=== PATIENT | female | born 1935 | race Caucasian/White ===

== ENCOUNTER 2017-10-30 10:51 | Inpatient (IN) | payer MEDICARE ==
[~2017-10-30] VITALS: Ht 139.7 cm; Wt 77.1 kg
[~2017-10-30 10:51] MED LIST: AMLODIPINE BES2.5 MG ORAL; HYDROCHLOROTH12.5 M2 ORAL; OMEPRAZOLE10 M1 ORAL
[2017-10-30] MEDS ORDERED: Morphine Sulfate 2mg/ml Inj IVP ONE ×2 (11:15→12:15)
[2017-10-30 11:31] LABS: BASOPHILS % (AUTO) 0.6 % (0.0-2.0); EOSINOPHILS % (AUTO) 0.2 % (0.0-3.0); HEMATOCRIT 42.9 % (37.0-47.0); LYMPHOCYTES % (AUTO) 10.8 % (20.0-45.0); MEAN CORPUSCULAR VOLUME 88 FL (80-99); NEUTROPHILS % (AUTO) 78.4 % (45.0-75.0); PLATELET COUNT 247 K/UL (150-450); RED BLOOD COUNT 4.86 M/UL (4.20-5.40); RED CELL DISTRIBUTION WIDTH 12.8 % (11.6-14.8); WHITE BLOOD COUNT 9.3 K/UL (4.8-10.8)
[2017-10-30 11:39] LABS: ALANINE AMINOTRANSFERASE 24 U/L (12-78); ALBUMIN 3.5 G/DL (3.4-5.0); ALBUMIN/GLOBULIN RATIO 0.9 (1.0-2.7); ALKALINE PHOSPHATASE 110 U/L (46-116); ANION GAP 9 mmol/L (5-15); ASPARTATE AMINO TRANSFERASE 22 U/L (15-37); BILIRUBIN,TOTAL 0.5 MG/DL (0.2-1.0); BLOOD UREA NITROGEN 21 mg/dL (7-18); CALCIUM 8.7 MG/DL (8.5-10.1); CARBON DIOXIDE 28 MMOL/L (21-32); CHLORIDE 100 MMOL/L (98-107); CREATININE 0.9 MG/DL (0.55-1.30); POTASSIUM 3.4 MMOL/L (3.5-5.1); SODIUM 136 MMOL/L (136-145)
--- NOTE | 2017-10-30 12:05 | Diagnostic Imaging Report ---
Indication: Right hip pain, trauma, fall Technique: No contrast utilized, per trauma protocol Spiral acquisitions obtained through the right hip. Multiplanar reconstructions were generated. Total dose length product 551.66 mGycm. CTDIvol(s) 18.93 mGy. Radiation dose was minimized using automated exposure control Comparison: none Findings: No evidence of right hip fracture demonstrated. No evidence of pelvic or sacral fracture. No significant joint space narrowing. There are minimal proliferative and subchondral cystic changes of the posterior left acetabulum, consistent with mild degenerative change. Heterotopic ossification of the superficial muscular fascia of the left hip is noted. There are degenerative changes of the lumbosacral junction. The included pelvic viscera are unremarkable. Impression: No evidence of acute bony trauma. Degenerative changes, as described Incidental findings as noted The CT scanner at [facility] is accredited by the [employer] and the scans are performed using protocols designed to limit radiation exposure to as low as reasonably achievable to attain images of sufficient resolution adequate for diagnostic evaluation.
[2017-10-30] MEDS ORDERED: LORazepam Inj 2mg/ml 1ml IV PRN (13:45)
[2017-10-30] MEDS ORDERED: Mylanta II UD 30ml ORAL PRN (13:45)
[2017-10-30 13:46] VITALS: BP 108/69
[2017-10-30] MEDS: Morphine Sulfate 4mg/ml Inj IVP PRN ×2 (13:52→17:25)
--- NOTE | 2017-10-30 14:55 | Diagnostic Imaging Report ---
Indication: Knee pain Technique: 3 views of the right knee Comparison: None Findings:Cylindrical metallic foreign body projects immediately lateral to the distal femoral metadiaphysis in the adjacent soft tissues. This measures approximate 20 mm in length by 3 mm in diameter No acute fractures. No dislocations. No suprapatellar effusion. There is severe medial compartmental degenerative joint space narrowing. There is extensive degenerative remodeling of the femur and the tibia, particularly medially. Bones are osteoporotic. Impression: No definite acute bony trauma Degenerative changes, as described Soft tissue foreign body, as described
--- NOTE | 2017-10-30 15:26 | Diagnostic Imaging Report ---
Indication: Pain, fall last night at home, 10 out of 10 right knee pain Technique: No IV contrast, per trauma protocol. Spiral acquisitions obtained through the right knee Multiplanar reconstructions were generated. Total dose length product 351.57 mGycm. CTDIvol(s) 15.26 mGy. Radiation dose was minimized using automated exposure control Comparison: Plain radiograph of earlier the same day Findings: There is what appears to be a subtle vertically oriented nondisplaced fracture line through the far lateral aspect of the patella, appreciable on both the coronal and the axial images. This is not evident on the plain radiographs. There is some overlying soft tissue thickening/contusion. There is also a small joint effusion which is not clearly evident on the plain radiograph. Slightly high attenuation of the fluid suggests that it may be bloody. No other evidence of acute fracture. No dislocations. A cylindrical metallic radiopaque foreign body is seen in the lateral aspect of the suprapatellar bursa, also demonstrated on the recent radiograph. There is moderate to severe degenerative narrowing of the medial joint compartment, less severe narrowing of the lateral joint compartment. There is underlying subchondral sclerosis and small subchondral cyst formation on both sides of the joint, as well as sizable osteophytes. There is also some degenerative change of the patellofemoral joint. Fairly extensive cloudlike calcifications are seen within the knee joint. There is also subtle meniscal chondrocalcinosis, particularly of the medial meniscus. Impression: Suspicious for subtle nondisplaced fracture of the far lateral aspect of the patella. There is evidence of overlying soft tissue ecchymosis Small joint effusion, which is possibly bloody Cylindrical radiopaque metallic foreign body within the suprapatellar bursa, nature/etiology of which is uncertain. Cloudlike calcifications throughout the joint space. These may represent a variation of early synovial osteochondromatosis, or could represent dystrophic calcifications Fairly extensive degenerative changes, as described Findings discussed by phone with Dr. Hernandez in the emergency room at the time of interpretation The CT scanner at [facility] is accredited by the [employer] and the scans are performed using protocols designed to limit radiation exposure to as low as reasonably achievable to attain images of sufficient resolution adequate for diagnostic evaluation.
--- NOTE | 2017-10-30 16:14 | Emergency Room Report ---
History of Present Illness General Chief Complaint: Lower Extremity Injury Source: Patient, EMS Present Illness HPI Patient is 82-year-old female who presented after increased right hip and knee pain. Patient said and onset of symptoms after a fall. Patient was brought in by EMS. Patient was noted to be unable to handle it after falling. Ports having prior orthopedic surgery on her left knee with a knee replacement. Patient has prior history of anticoagulant use. Allergies: Coded Allergies: PENICILLIN (Verified Allergy, Unknown, 08/05/15) Patient History Past Medical History: see triage record Reviewed Nursing Documentation: PMH: Agreed, PSxH: Agreed Nursing Documentation-PMH Past Medical History: No History, Except For Hx Cardiac Problems: Yes - AFIB Hx Hypertension: Yes Hx Pacemaker: No Hx Asthma: No Hx COPD: No Hx Diabetes: No Hx Cancer: No Hx Gastrointestinal Problems: No Hx Dialysis: No Hx Neurological Problems: No Hx Cerebrovascular Accident: No Hx Seizures: No Review of Systems All Other Systems: negative except mentioned in HPI Physical Exam Vital Signs Date Time Temp Pulse Resp B/P (MAP) Pulse Ox O2 Delivery O2 Flow Rate FiO2 10/30/17 10:44 97.4 67 20 146/69 100 Room Air 97.3 Sp02 EP Interpretation: reviewed, normal General Appearance: normal inspection, no apparent distress, alert, GCS 15, Chronically Ill Head: atraumatic ENT: normal ENT inspection, hearing grossly normal, normal voice Neck: normal inspection, full range of motion, supple, no bony tend Respiratory: normal inspection, lungs clear, normal breath sounds, no respiratory distress, no retraction, no wheezing Cardiovascular #1: regular rate, rhythm, no gallop Gastrointestinal: normal inspection, normal bowel sounds, non tender, soft, no guarding, no hernia Genitourinary: no CVA tenderness Musculoskeletal: normal inspection, back normal, normal range of motion Neurologic: normal inspection, alert, responsive, speech normal Psychiatric: normal inspection, judgement/insight normal, mood/affect normal Skin: no rash, other - soft tissue swelling right knee Medical Decision Making Diagnostic Impression: Primary Impression: Fall Additional Impressions: Hemarthrosis Patellar fracture Contusion, hip Foreign body (FB) in soft tissue ER Course Patient presented for right hip pain and right knee pain. Differential diagnosis included was not limited to fracture, dislocation, sprain, patellar fracture among others. Because of complexity of patient's case laboratory testing and imaging studies were ordered. The telemetry studies are unremarkable. Patient was noted to have CT of the right hip read by radiology which showed no definite fracture. Plain film x- ray of the right knee showed degenerative changes without definite fracture CT of the right knee was ordered due to persistent pain. Dr. sharma was contacted for inpatient management due to panel physician. The patient was noted to have severe pain with movement of the knee. Patient given IV pain medications.Dr. Ar Mahoney was contacted for Orthopedic consult. Labs Test 10/30/17 11:10 White Blood Count 9.3 K/UL (4.8-10.8) Red Blood Count 4.86 M/UL (4.20-5.40) Hemoglobin 14.0 G/DL (12.0-16.0) Hematocrit 42.9 % (37.0-47.0) Mean Corpuscular Volume 88 FL (80-99) Mean Corpuscular Hemoglobin 28.8 PG (27.0-31.0) Mean Corpuscular Hemoglobin Concent 32.6 G/DL (32.0-36.0) Red Cell Distribution Width 12.8 % (11.6-14.8) Platelet Count 247 K/UL (150-450) Mean Platelet Volume 7.2 FL (6.5-10.1) Neutrophils (%) (Auto) 78.4 % (45.0-75.0) Lymphocytes (%) (Auto) 10.8 % (20.0-45.0) Monocytes (%) (Auto) 10.0 % (1.0-10.0) Eosinophils (%) (Auto) 0.2 % (0.0-3.0) Basophils (%) (Auto) 0.6 % (0.0-2.0) Prothrombin Time 10.2 SEC (9.30-11.50) Prothromb Time International Ratio 1.0 (0.9-1.1) Activated Partial Thromboplast Time 30 SEC (23-33) Sodium Level 136 MMOL/L (136-145) Potassium Level 3.4 MMOL/L (3.5-5.1) Chloride Level 100 MMOL/L (98-107) Carbon Dioxide Level 28 MMOL/L (21-32) Anion Gap 9 mmol/L (5-15) Blood Urea Nitrogen 21 mg/dL (7-18) Creatinine 0.9 MG/DL (0.55-1.30) Estimat Glomerular Filtration Rate mL/min (>60) Glucose Level 105 MG/DL (74-106) Calcium Level 8.7 MG/DL (8.5-10.1) Total Bilirubin 0.5 MG/DL (0.2-1.0) Aspartate Amino Transf (AST/SGOT) 22 U/L (15-37) Alanine Aminotransferase (ALT/SGPT) 24 U/L (12-78) Alkaline Phosphatase 110 U/L (46-116) Total Protein 7.3 G/DL (6.4-8.2) Albumin 3.5 G/DL (3.4-5.0) Globulin 3.8 g/dL Albumin/Globulin Ratio 0.9 (1.0-2.7) Last Vital Signs Date Time Temp Pulse Resp B/P (MAP) Pulse Ox O2 Delivery O2 Flow Rate FiO2 10/30/17 13:52 97.5 10/30/17 13:46 20 108/69 95 Room Air 10/30/17 10:44 67 Status: unchanged Disposition: ADMITTED INPATIENT Condition: Serious Referrals: NOT CHOSEN IPA/,REFERRING (PCP) Kalyan Sears Oct 30, 2017 16:14
[2017-10-30] MEDS ORDERED: ELIQUIS2.5 MG PO (17:38)
--- NOTE | 2017-10-30 18:50 | Cardiology Progress Note ---
Assessment/Plan Assessment/Plan [id number] as paf htn patelar fx awiat echo to see how sever eric as is hodl eliquis repeat lab avodi non urgen or emergent surgicl procedure unitl echo avaialbel Objective Last 24 Hour Vital Signs Date Time Temp Pulse Resp B/P (MAP) Pulse Ox O2 Delivery O2 Flow Rate FiO2 10/30/17 17:25 97.5 10/30/17 16:28 97.5 10/30/17 16:27 97.5 10/30/17 13:52 97.5 10/30/17 13:46 97.5 20 108/69 95 Room Air 97.5 10/30/17 12:14 97.4 10/30/17 11:36 97.4 10/30/17 11:06 97.4 10/30/17 10:44 97.4 67 20 146/69 100 Room Air 97.3 Laboratory Tests Test 10/30/17 11:10 White Blood Count 9.3 K/UL (4.8-10.8) Red Blood Count 4.86 M/UL (4.20-5.40) Hemoglobin 14.0 G/DL (12.0-16.0) Hematocrit 42.9 % (37.0-47.0) Mean Corpuscular Volume 88 FL (80-99) Mean Corpuscular Hemoglobin 28.8 PG (27.0-31.0) Mean Corpuscular Hemoglobin Concent 32.6 G/DL (32.0-36.0) Red Cell Distribution Width 12.8 % (11.6-14.8) Platelet Count 247 K/UL (150-450) Mean Platelet Volume 7.2 FL (6.5-10.1) Neutrophils (%) (Auto) 78.4 % (45.0-75.0) H Lymphocytes (%) (Auto) 10.8 % (20.0-45.0) L Monocytes (%) (Auto) 10.0 % (1.0-10.0) Eosinophils (%) (Auto) 0.2 % (0.0-3.0) Basophils (%) (Auto) 0.6 % (0.0-2.0) Prothrombin Time 10.2 SEC (9.30-11.50) Prothromb Time International Ratio 1.0 (0.9-1.1) Activated Partial Thromboplast Time 30 SEC (23-33) Sodium Level 136 MMOL/L (136-145) Potassium Level 3.4 MMOL/L (3.5-5.1) L Chloride Level 100 MMOL/L (98-107) Carbon Dioxide Level 28 MMOL/L (21-32) Anion Gap 9 mmol/L (5-15) Blood Urea Nitrogen 21 mg/dL (7-18) H Creatinine 0.9 MG/DL (0.55-1.30) Estimat Glomerular Filtration Rate mL/min (>60) Glucose Level 105 MG/DL (74-106) Calcium Level 8.7 MG/DL (8.5-10.1) Total Bilirubin 0.5 MG/DL (0.2-1.0) Aspartate Amino Transf (AST/SGOT) 22 U/L (15-37) Alanine Aminotransferase (ALT/SGPT) 24 U/L (12-78) Alkaline Phosphatase 110 U/L (46-116) Total Protein 7.3 G/DL (6.4-8.2) Albumin 3.5 G/DL (3.4-5.0) Globulin 3.8 g/dL Albumin/Globulin Ratio 0.9 (1.0-2.7) SINA HARRELL Oct 30, 2017 18:50
[2017-10-30 20:00] VITALS: BP 114/74
[2017-10-30] MEDS ORDERED: Heparin 5000 units/ml inj SUBQ SCH (21:00)
[2017-10-30] MEDS ORDERED: Zolpidem 5mg tab ORAL PRN (21:00)
[2017-10-30] MEDS ORDERED: Miralax 17gm pkt ORAL PRN (21:00)
[2017-10-30] MEDS: Eliquis 2.5mg tablet ORAL SCH (22:15)
--- NOTE | 2017-10-30 22:44 | History and Physical ---
History of Present Illness General Date patient seen: Oct 30, 2017 Reason for Hospitalization: Lower Extremity Injury Present Illness HPI 82-year-old female with hx of Afib on Eliquis presented to Er by paramedics after increased right hip and knee pain after a fall. Pt was found to have acute patella fracture. Because of her cardiac history, she was admitted to telemetry. she is asymptomatic at this point. Allergies: Coded Allergies: PENICILLIN (Verified Allergy, Unknown, 08/05/15) Medication History Scheduled Amlodipine Besylate* (Amlodipine Besylate*), Unknown Dose ORAL DAILY, (Reported) Apixaban (Eliquis), 2.5 MG PO BID, (Reported) Hydrochlorothiazide* (Hydrochlorothiazide*), Unknown Dose ORAL DAILY, (Reported) Omeprazole (Omeprazole), Unknown Dose ORAL DAILY, (Reported) Patient History Healthcare decision maker Resuscitation status Advanced Directive on File Past Medical/Surgical History Past Medical/Surgical History: (1) CAD (coronary artery disease) (2) Hip fracture (3) Chronic anticoagulation Review of Systems Musculoskeletal: Reports: joint pain All Other Systems: negative except mentioned in HPI Physical Exam General Appearance: WD/WN Lines, tubes and drains: peripheral HEENT: normocephalic, atraumatic Neck: non-tender, normal alignment Respiratory/Chest: chest wall non-tender, lungs clear, normal breath sounds Breasts: no masses Cardiovascular/Chest: normal peripheral pulses, normal rate, no JVD Abdomen: normal bowel sounds, non tender Genitourinary/Rectal: normal genital exam Extremities: normal range of motion, non-tender Skin Exam: normal pigmentation, warm/dry Last 24 Hour Vital Signs Date Time Temp Pulse Resp B/P (MAP) Pulse Ox O2 Delivery O2 Flow Rate FiO2 10/30/17 17:25 97.5 10/30/17 16:28 97.5 10/30/17 16:27 97.5 10/30/17 13:52 97.5 10/30/17 13:46 97.5 20 108/69 95 Room Air 97.5 10/30/17 12:14 97.4 10/30/17 11:36 97.4 10/30/17 11:06 97.4 10/30/17 10:44 97.4 67 20 146/69 100 Room Air 97.3 Laboratory Tests Test 10/30/17 11:10 White Blood Count 9.3 K/UL (4.8-10.8) Red Blood Count 4.86 M/UL (4.20-5.40) Hemoglobin 14.0 G/DL (12.0-16.0) Hematocrit 42.9 % (37.0-47.0) Mean Corpuscular Volume 88 FL (80-99) Mean Corpuscular Hemoglobin 28.8 PG (27.0-31.0) Mean Corpuscular Hemoglobin Concent 32.6 G/DL (32.0-36.0) Red Cell Distribution Width 12.8 % (11.6-14.8) Platelet Count 247 K/UL (150-450) Mean Platelet Volume 7.2 FL (6.5-10.1) Neutrophils (%) (Auto) 78.4 % (45.0-75.0) H Lymphocytes (%) (Auto) 10.8 % (20.0-45.0) L Monocytes (%) (Auto) 10.0 % (1.0-10.0) Eosinophils (%) (Auto) 0.2 % (0.0-3.0) Basophils (%) (Auto) 0.6 % (0.0-2.0) Prothrombin Time 10.2 SEC (9.30-11.50) Prothromb Time International Ratio 1.0 (0.9-1.1) Activated Partial Thromboplast Time 30 SEC (23-33) Sodium Level 136 MMOL/L (136-145) Potassium Level 3.4 MMOL/L (3.5-5.1) L Chloride Level 100 MMOL/L (98-107) Carbon Dioxide Level 28 MMOL/L (21-32) Anion Gap 9 mmol/L (5-15) Blood Urea Nitrogen 21 mg/dL (7-18) H Creatinine 0.9 MG/DL (0.55-1.30) Estimat Glomerular Filtration Rate mL/min (>60) Glucose Level 105 MG/DL (74-106) Calcium Level 8.7 MG/DL (8.5-10.1) Total Bilirubin 0.5 MG/DL (0.2-1.0) Aspartate Amino Transf (AST/SGOT) 22 U/L (15-37) Alanine Aminotransferase (ALT/SGPT) 24 U/L (12-78) Alkaline Phosphatase 110 U/L (46-116) Total Protein 7.3 G/DL (6.4-8.2) Albumin 3.5 G/DL (3.4-5.0) Globulin 3.8 g/dL Albumin/Globulin Ratio 0.9 (1.0-2.7) L Height (Feet): 5 Height (Inches): 3.00 Weight (Pounds): 155 Medications Current Medications Medications (Trade) Dose Ordered Sig/Lizz Route PRN Reason Start Time Stop Time Status Last Admin Dose Admin Acetaminophen (Tylenol) 650 mg Q4H PRN ORAL T>100.5 10/30/17 13:45 11/29/17 13:44 Al Hydroxide/Mg Hydroxide (Mylanta II) 30 ml Q6H PRN ORAL dyspepsia 10/30/17 13:45 11/29/17 13:44 Amlodipine Besylate (Norvasc) 5 mg DAILY ORAL 10/31/17 09:00 11/30/17 08:59 Apixaban (Eliquis) 2.5 mg BID ORAL 10/30/17 22:15 11/29/17 22:14 Dextrose (Dextrose 50%) STAT PRN IV Hypoglycemia 10/30/17 13:45 11/29/17 13:44 Furosemide (Lasix) 20 mg DAILY ORAL 10/31/17 09:00 11/30/17 08:59 Lorazepam (Ativan 2mg/ml 1ml) 0.5 mg Q4H PRN IV For Anxiety 10/30/17 13:45 11/06/17 13:44 Morphine Sulfate (Morphine Sulfate) 2 mg Q4H PRN IVP Moderate Pain (Pain Scale 4-6) 10/30/17 13:45 11/06/17 13:44 Morphine Sulfate (Morphine Sulfate) 4 mg Q4H PRN IVP Severe Pain (Pain Scale 7-10) 10/30/17 13:45 11/06/17 13:44 10/30/17 17:25 Ondansetron HCl (Zofran) 4 mg Q6H PRN IVP Nausea & Vomiting 10/30/17 13:45 11/29/17 13:44 Polyethylene Glycol (Miralax) 17 gm HSPRN PRN ORAL Constipation 10/30/17 21:00 11/29/17 20:59 Potassium Chloride (K-Dur) 20 meq DAILY ORAL 10/31/17 09:00 11/30/17 08:59 Zolpidem Tartrate (Ambien) 5 mg HSPRN PRN ORAL Insomnia 10/30/17 21:00 11/06/17 20:59 Assessment/Plan Problem List: (1) Patellar fracture ICD Codes: S82.009A - Unspecified fracture of unspecified patella, initial encounter for closed fracture SNOMED: 80581134 (2) Near syncope ICD Codes: R55 - Syncope and collapse SNOMED: 187102239 (3) Atrial fibrillation ICD Codes: I48.91 - Unspecified atrial fibrillation SNOMED: 08642322 (4) Chronic anticoagulation ICD Codes: Z79.01 - terminal operator (current) use of anticoagulants SNOMED: 403280083 (5) CAD (coronary artery disease) ICD Codes: I25.10 - Atherosclerotic heart disease of [place] coronary artery without angina pectoris SNOMED: 05466705 (6) Aortic stenosis ICD Codes: I35.0 - Nonrheumatic aortic (valve) stenosis SNOMED: 92989058 Assessment/Plan ortho evaluation pain management cardio evaluation echo Lalita Way MD Oct 30, 2017 22:44
--- NOTE | 2017-10-30 23:15 | Consultation ---
DATE OF CONSULTATION: 10/30/2017 CARDIAC CONSULTATION CONSULTING PHYSICIAN: Henry Shafer M.D. REFERRING PHYSICIAN: Lalita Way M.D. REASON FOR REFERRAL: Preoperative risk assessment. HISTORY OF PRESENT ILLNESS: This is an elderly female, who is usually followed by Dr. Dover. She presented to the hospital here because of an episode of falling last night. It was nonsyncopal fall. She remembers the fall. She tried to break the fall and eventually got herself up and sat up in a chair, was doing well last night, this morning had a lot of aches and pains, and the condo where she lives at eventually called the paramedics who brought the patient to the emergency room here at [facility]. She really does not have any chest pain. There is no PND or orthopnea. She does sleep in a 45-degree head-of-bed elevation because of gastroesophageal reflux disease symptoms, but she does not have any shortness of breath. She has occasional shortness of breath on exertion. She does not have any pain, pressure, tightness in her chest. She denies any dizziness or lightheadedness on standing. No no palpitations. PAST MEDICAL HISTORY: Positive for possibly some episodes of aortic stenosis in 2014, she had aortic valve of 1.8 with peak of 39 and minimum of 20, this is here when she was admitted with ejection fraction of 70% to 75%, and she was diagnosed with lightheadedness, near syncope, orthostatic hypertension, aortic stenosis, hypokalemia, unsteady gait, arthritis, and history of hypertension. According to the patient herself, she has been on anticoagulation with Eliquis because of possibility of atrial fibrillation. She tells me that her doctor was suspicious of that since middle august. ALLERGIES: She is allergic to penicillin. SOCIAL HISTORY: She does not smoke. Occasionally drinks alcoholic beverages. No drug use. REVIEW OF SYSTEMS: GASTROINTESTINAL: She had some diarrhea GENITOURINARY: Negative. PULMONARY: Negative. CONSTITUTIONAL: Negative. NEUROLOGIC: She has carpal tunnel syndrome. PHYSICAL EXAMINATION: GENERAL: Shows an elderly female, in no respiratory distress. HEENT: Unremarkable. NECK: Supple. No jugular venous distention. No abdominojugular reflux noted. LUNGS: Clear to auscultation and percussion. CARDIAC: S1 is normal. S2 is normal. Regular rate and rhythm. Systolic ejection murmur. No RV lifts, heaves, or thrills noted. ABDOMEN: Soft and nontender. Positive bowel sounds. EXTREMITIES: A 1 to 2+ edema in lower extremities bilaterally. LABORATORY AND DIAGNOSTIC DATA: CT scan of her knee shows suspicious for subtle nondisplaced fracture of the far-lateral aspect of the patella, ecchymosis, small joint effusion, possibly bloody, metallic foreign body within the suprapatellar bursa, degenerative changes. Hips' CT shows no evidence of acute bony trauma, degenerative joint disease was noted. Other labs, white count of 9.3, hemoglobin 14, and platelet count of 247,000. Sodium is 136, potassium 3.4, chloride 100, bicarbonate 28, BUN 21, creatinine 0.9, glucose of 105. Coags, INR 1.0 and PTT of 30. Urinalysis not available. ASSESSMENT AND PLAN: 1. Nonsyncopal fall. 2. Patellar fracture, nondisplaced. 3. Aortic stenosis. 4. Questionable history of paroxysmal episodes of atrial fibrillation for which she is on anticoagulation with Eliquis. 5. 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 6. Edema. This patient was seen in cardiac consultation. The patient indicates she has been on Eliquis because of report of paroxysmal episodes of atrial fibrillation. I have been able to find her doctor's data from [facility] and it appears that there is evidence of history of hypertension. The patient apparently has some aortic stenosis and felt not to be a surgical candidate. She is possibly a TAVR candidate and plans were to evaluate that in the future. There has been no notation of any atrial fibrillation that I can obtain from the patient's records, although she is indicating to have been on Eliquis and the etiology again is not clear. She is also on hydrochlorothiazide and metoprolol that has helped her. She will be continued on those medications. An echocardiogram will be ordered for evaluation of the aortic valve severity. At this time pending evaluation of severity, we would not pursue any nonurgent surgical procedures as of yet. Further recommendations depending on the findings of the echocardiogram. Henry Shafer M.D. DR: Scar JOB#: [id number] CC:
[2017-10-31] VITALS: BP 113/66
[2017-10-31 04:00] VITALS: BP 110/56
[2017-10-31] MEDS: Morphine Sulfate 2mg/ml Inj IVP PRN ×2 (05:38→10:59)
[2017-10-31 08:00] VITALS: BP 121/64
[2017-10-31 08:07] LABS: BASOPHILS % (AUTO) 0.5 % (0.0-2.0); EOSINOPHILS % (AUTO) 0.4 % (0.0-3.0); HEMATOCRIT 37.9 % (37.0-47.0); HEMOGLOBIN 12.5 G/DL (12.0-16.0); LYMPHOCYTES % (AUTO) 14.7 % (20.0-45.0); MEAN CORPUSCULAR VOLUME 89 FL (80-99); MONOCYTES % (AUTO) 14.8 % (1.0-10.0); NEUTROPHILS % (AUTO) 69.7 % (45.0-75.0); PLATELET COUNT 208 K/UL (150-450); RED BLOOD COUNT 4.25 M/UL (4.20-5.40); RED CELL DISTRIBUTION WIDTH 12.9 % (11.6-14.8); WHITE BLOOD COUNT 7.8 K/UL (4.8-10.8)
[2017-10-31 08:42] LABS: ALANINE AMINOTRANSFERASE 18 U/L (12-78); ALBUMIN 2.9 G/DL (3.4-5.0); ALBUMIN/GLOBULIN RATIO 0.8 (1.0-2.7); ALKALINE PHOSPHATASE 91 U/L (46-116); ANION GAP 8 mmol/L (5-15); ASPARTATE AMINO TRANSFERASE 23 U/L (15-37); BILIRUBIN,TOTAL 0.6 MG/DL (0.2-1.0); BLOOD UREA NITROGEN 18 mg/dL (7-18); CALCIUM 8.5 MG/DL (8.5-10.1); CARBON DIOXIDE 27 MMOL/L (21-32); CHLORIDE 100 MMOL/L (98-107); CREATININE 0.7 MG/DL (0.55-1.30); POTASSIUM 3.5 MMOL/L (3.5-5.1); SODIUM 135 MMOL/L (136-145)
[2017-10-31] MEDS: Eliquis 2.5mg tablet ORAL SCH ×2 (09:47→17:56)
[2017-10-31 12:00] VITALS: BP 105/59
--- NOTE | 2017-10-31 13:19 | Pulmonology Progress Note ---
Assessment/Plan Problems: (1) Patellar fracture (2) Near syncope (3) Atrial fibrillation (4) Chronic anticoagulation (5) CAD (coronary artery disease) (6) Aortic stenosis Assessment/Plan symptomatic treatment ortho called analgesics hold Eliquis until cardio and ortho agree to start keep in teli until cardio clears. dvt prophylaxis with heparin sq now Subjective ROS Limited/Unobtainable: No Interval Events: no new complains Allergies: Coded Allergies: PENICILLIN (Verified Allergy, Unknown, 08/05/15) Objective Last 24 Hour Vital Signs Date Time Temp Pulse Resp B/P (MAP) Pulse Ox O2 Delivery O2 Flow Rate FiO2 10/31/17 12:00 97.9 83 18 105/59 94 Room Air 97.9 10/31/17 12:00 82 10/31/17 09:46 105 121/64 10/31/17 09:00 82 10/31/17 08:00 98.1 105 18 121/64 94 Room Air 98.1 10/31/17 06:08 98.4 10/31/17 04:00 96 10/31/17 04:00 98.2 92 20 110/56 95 Room Air 98.2 10/31/17 00:00 97 10/31/17 00:00 98.4 101 20 113/66 95 Room Air 98.4 10/30/17 20:00 92 10/30/17 20:00 98.2 98 20 114/74 96 Room Air 98.2 10/30/17 17:25 97.5 10/30/17 16:28 97.5 10/30/17 16:27 97.5 10/30/17 13:52 97.5 10/30/17 13:46 97.5 20 108/69 95 Room Air 97.5 Intake and Output 10/30/17 10/31/17 19:00 07:00 Intake Total 0 ml 300 ml Balance 0 ml 300 ml Intake Oral 0 ml 300 ml Objective General Appearance: WD/WN Lines, tubes and drains: peripheral HEENT: normocephalic, atraumatic Neck: non-tender, normal alignment Respiratory/Chest: chest wall non-tender, lungs clear, normal breath sounds Breasts: no masses Cardiovascular/Chest: normal peripheral pulses, normal rate, no JVD Abdomen: normal bowel sounds, non tender Genitourinary/Rectal: normal genital exam Extremities: normal range of motion, non-tender Skin Exam: normal pigmentation, warm/dry Laboratory Tests 10/31/17 06:43: White Blood Count 7.8, Red Blood Count 4.25, Hemoglobin 12.5, Hematocrit 37.9, Mean Corpuscular Volume 89, Mean Corpuscular Hemoglobin 29.4, Mean Corpuscular Hemoglobin Concent 32.9, Red Cell Distribution Width 12.9, Platelet Count 208, Mean Platelet Volume 6.8, Neutrophils (%) (Auto) 69.7, Lymphocytes (%) (Auto) 14.7L, Monocytes (%) (Auto) 14.8H, Eosinophils (%) (Auto) 0.4, Basophils (%) ( Auto) 0.5, Sodium Level 135L, Potassium Level 3.5, Chloride Level 100, Carbon Dioxide Level 27, Anion Gap 8, Blood Urea Nitrogen 18, Creatinine 0.7, Estimat Glomerular Filtration Rate , Glucose Level 103, Calcium Level 8.5, Total Bilirubin 0.6, Aspartate Amino Transf (AST/SGOT) 23, Alanine Aminotransferase ( ALT/SGPT) 18, Alkaline Phosphatase 91, Troponin I 0.653H, Total Protein 6.5, Albumin 2.9L, Globulin 3.6, Albumin/Globulin Ratio 0.8L, Thyroid Stimulating Hormone (TSH) 1.499 Current Medications Medications (Trade) Dose Ordered Sig/Lizz Route PRN Reason Start Time Stop Time Status Last Admin Dose Admin Acetaminophen (Tylenol) 650 mg Q4H PRN ORAL T>100.5 10/30/17 13:45 11/29/17 13:44 Al Hydroxide/Mg Hydroxide (Mylanta II) 30 ml Q6H PRN ORAL dyspepsia 10/30/17 13:45 11/29/17 13:44 Amlodipine Besylate (Norvasc) 5 mg DAILY ORAL 10/31/17 09:00 11/30/17 08:59 Apixaban (Eliquis) 2.5 mg BID ORAL 10/30/17 22:15 11/29/17 22:14 10/31/17 09:47 Dextrose (Dextrose 50%) STAT PRN IV Hypoglycemia 10/30/17 13:45 11/29/17 13:44 Furosemide (Lasix) 20 mg DAILY ORAL 10/31/17 09:00 11/30/17 08:59 Lorazepam (Ativan 2mg/ml 1ml) 0.5 mg Q4H PRN IV For Anxiety 10/30/17 13:45 11/06/17 13:44 Morphine Sulfate (Morphine Sulfate) 2 mg Q4H PRN IVP Moderate Pain (Pain Scale 4-6) 10/30/17 13:45 11/06/17 13:44 10/31/17 10:59 Morphine Sulfate (Morphine Sulfate) 4 mg Q4H PRN IVP Severe Pain (Pain Scale 7-10) 10/30/17 13:45 11/06/17 13:44 10/30/17 17:25 Ondansetron HCl (Zofran) 4 mg Q6H PRN IVP Nausea & Vomiting 10/30/17 13:45 11/29/17 13:44 Polyethylene Glycol (Miralax) 17 gm HSPRN PRN ORAL Constipation 10/30/17 21:00 11/29/17 20:59 Potassium Chloride (K-Dur) 20 meq DAILY ORAL 10/31/17 09:00 11/30/17 08:59 10/31/17 09:47 Zolpidem Tartrate (Ambien) 5 mg HSPRN PRN ORAL Insomnia 10/30/17 21:00 11/06/17 20:[address] MD Oct 31, 2017 13:19
[2017-10-31] MEDS ORDERED: HYDROCHLOROTHIA25 MG ORAL (13:28)
[2017-10-31] MEDS ORDERED: METOPROLOL SUCC25 MG ORAL (13:28)
[2017-10-31] MEDS ORDERED: POTASSIUM CHLOR8 ME3 (13:28)
[2017-10-31] MEDS ORDERED: OMEPRAZOLE20 M2 ORAL (13:28)
--- NOTE | 2017-10-31 14:51 | Consultation ---
Consult Note Consult Note consult dictated no sx. knee immobilizer. wbat MARY TORRES Oct 31, 2017 14:50
--- NOTE | 2017-10-31 15:26 | Consultation ---
Consult Note Consult Note Patient seen with PA. No hip fracture noted. Right non-displaced patella fracture. WBAT with knee immobilizer. Follow up in 4 weeks. PT/OT. Most likely requires rehab. TAN Madrid Oct 31, 2017 15:26
[2017-10-31 16:00] VITALS: BP 116/62
--- NOTE | 2017-10-31 16:51 | Cardiology Progress Note ---
Assessment/Plan Assessment/Plan 1. Nonsyncopal fall. 2. Patellar fracture, nondisplaced. 3. Aortic stenosis. 4. Questionable history of paroxysmal episodes of atrial fibrillation for which she is on anticoagulation with Eliquis. 5. 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 6. Edema. 7. minor trop abn no surgery planned epic data reviewed appear her usual diploma pharmacy technician recorded PG of 98 mmhg across eric aortic valve with hyeprdynamic lv ef70-75% her echo today was reviewed more images need to be taken as i believe the av gradient may be in excess of 125 mmhg!!(and at thsi point i doot beleive flow contamination by any MR , she also has mod MS and new SWMA not noted on prior echo report ef not as high as prior but still ok ekg shows some new st changes as well which see new compared to 2017 ekg will repeat her trop adn ekg again will have cpk checked as well Subjective Cardiovascular: Denies: chest pain, lightheadedness, palpitations Respiratory: Reports: shortness of breath Gastrointestinal/Abdominal: Denies: abdominal pain Genitourinary: Denies: burning Objective Last 24 Hour Vital Signs Date Time Temp Pulse Resp B/P (MAP) Pulse Ox O2 Delivery O2 Flow Rate FiO2 10/31/17 16:00 97.5 88 18 116/62 94 Room Air 97.5 10/31/17 12:00 97.9 83 18 105/59 94 Room Air 97.9 10/31/17 12:00 82 10/31/17 09:46 105 121/64 10/31/17 09:00 82 10/31/17 08:00 98.1 105 18 121/64 94 Room Air 98.1 10/31/17 06:08 98.4 10/31/17 04:00 96 10/31/17 04:00 98.2 92 20 110/56 95 Room Air 98.2 10/31/17 00:00 97 10/31/17 00:00 98.4 101 20 113/66 95 Room Air 98.4 10/30/17 20:00 92 10/30/17 20:00 98.2 98 20 114/74 96 Room Air 98.2 10/30/17 17:25 97.5 General Appearance: no apparent distress, alert Neck: supple Cardiovascular: normal rate, regular rhythm, systolic murmur Respiratory/Chest: crackles/rales Abdomen: normal bowel sounds, non tender, soft Extremities: no swelling Intake and Output 10/30/17 10/31/17 19:00 07:00 Intake Total 0 ml 300 ml Balance 0 ml 300 ml Intake Oral 0 ml 300 ml Laboratory Tests Test 10/31/17 06:43 White Blood Count 7.8 K/UL (4.8-10.8) Red Blood Count 4.25 M/UL (4.20-5.40) Hemoglobin 12.5 G/DL (12.0-16.0) Hematocrit 37.9 % (37.0-47.0) Mean Corpuscular Volume 89 FL (80-99) Mean Corpuscular Hemoglobin 29.4 PG (27.0-31.0) Mean Corpuscular Hemoglobin Concent 32.9 G/DL (32.0-36.0) Red Cell Distribution Width 12.9 % (11.6-14.8) Platelet Count 208 K/UL (150-450) Mean Platelet Volume 6.8 FL (6.5-10.1) Neutrophils (%) (Auto) 69.7 % (45.0-75.0) Lymphocytes (%) (Auto) 14.7 % (20.0-45.0) L Monocytes (%) (Auto) 14.8 % (1.0-10.0) H Eosinophils (%) (Auto) 0.4 % (0.0-3.0) Basophils (%) (Auto) 0.5 % (0.0-2.0) Sodium Level 135 MMOL/L (136-145) L Potassium Level 3.5 MMOL/L (3.5-5.1) Chloride Level 100 MMOL/L (98-107) Carbon Dioxide Level 27 MMOL/L (21-32) Anion Gap 8 mmol/L (5-15) Blood Urea Nitrogen 18 mg/dL (7-18) Creatinine 0.7 MG/DL (0.55-1.30) Estimat Glomerular Filtration Rate mL/min (>60) Glucose Level 103 MG/DL (74-106) Calcium Level 8.5 MG/DL (8.5-10.1) Total Bilirubin 0.6 MG/DL (0.2-1.0) Aspartate Amino Transf (AST/SGOT) 23 U/L (15-37) Alanine Aminotransferase (ALT/SGPT) 18 U/L (12-78) Alkaline Phosphatase 91 U/L (46-116) Troponin I 0.653 ng/mL (0.000-0.056) Total Protein 6.5 G/DL (6.4-8.2) Albumin 2.9 G/DL (3.4-5.0) L Globulin 3.6 g/dL Albumin/Globulin Ratio 0.8 (1.0-2.7) L Thyroid Stimulating Hormone (TSH) 1.499 uiU/mL (0.358-3.740) SINA CLEMENTE Oct 31, 2017 16:50
--- NOTE | 2017-10-31 18:34 | Cardiology Report ---
APPROVED REPORT EKG Measurement Heart [id number] Normal sinus rhythm Biatrial enlargement Septal infarct, age undetermined Abnormal ECG
[2017-10-31 19:18] LABS: CREATINE KINASE 122 U/L (26-308)
[2017-10-31 20:00] VITALS: BP 124/70
--- NOTE | 2017-10-31 20:35 | Consultation ---
History of Present Illness General Date patient seen: Oct 30, 2017 Chief Complaint: Lower Extremity Injury Present Illness HPI 82-year-old female who presented after increased right hip and knee pain. the pt has anxiety and insomnia. the pt is coherent and is able to answer the questions appropriately. the pt is not endorsing si hi or depressive sxs. Allergies: Coded Allergies: PENICILLIN (Verified Allergy, Unknown, 08/05/15) Medication History Scheduled Amlodipine Besylate* (Amlodipine Besylate*), Unknown Dose ORAL DAILY, (Reported) Apixaban (Eliquis), 2.5 MG PO BID, (Reported) Metoprolol Succinate* (Metoprolol Succinate*), 25 MG ORAL DAILY, (Reported) Miscellaneous Medications Hydrochlorothiazide* (Hydrochlorothiazide*), 25 MG ORAL, (Reported) Omeprazole (Omeprazole), 20 MG ORAL, (Reported) Potassium Chloride (Potassium Chloride), (Reported) Discontinued Medications Hydrochlorothiazide* (Hydrochlorothiazide*), Unknown Dose ORAL DAILY, (Reported) Discontinued Reason: Therapy completed Omeprazole (Omeprazole), Unknown Dose ORAL DAILY, (Reported) Discontinued Reason: Therapy completed Patient History Limited by: medical condition History Provided By: Patient, Medical Record Healthcare decision maker Resuscitation status Full Code Advanced Directive on File No Past Medical/Surgical History Past Medical/Surgical History: (1) Episode of generalized weakness (2) Non-Q wave infarction (3) Contusion, hip (4) Hemarthrosis (5) Fall (6) Patellar fracture (7) Foreign body (FB) in soft tissue (8) CAD (coronary artery disease) (9) Hip fracture (10) Chronic anticoagulation (11) Atrial fibrillation (12) Aortic stenosis (13) Near syncope Review of Systems Psychiatric: Reports: prior hx, anxiety, depressed feelings, emotional problems Physical Exam General Appearance: no apparent distress, alert Neurologic: alert, oriented x 3, depressed affect Last 24 Hour Vital Signs Date Time Temp Pulse Resp B/P (MAP) Pulse Ox O2 Delivery O2 Flow Rate FiO2 10/31/17 20:00 98.4 84 18 124/70 95 98.4 10/31/17 16:00 97.5 88 18 116/62 94 Room Air 97.5 10/31/17 16:00 77 10/31/17 12:00 97.9 83 18 105/59 94 Room Air 97.9 10/31/17 12:00 82 10/31/17 09:46 105 121/64 10/31/17 09:00 82 10/31/17 08:00 98.1 105 18 121/64 94 Room Air 98.1 10/31/17 06:08 98.4 10/31/17 04:00 96 10/31/17 04:00 98.2 92 20 110/56 95 Room Air 98.2 10/31/17 00:00 97 10/31/17 00:00 98.4 101 20 113/66 95 Room Air 98.4 Intake and Output 10/30/17 10/31/17 19:00 07:00 Intake Total 0 ml 300 ml Balance 0 ml 300 ml Intake Oral 0 ml 300 ml Laboratory Tests Test 10/31/17 06:43 10/31/17 18:45 White Blood Count 7.8 K/UL (4.8-10.8) Red Blood Count 4.25 M/UL (4.20-5.40) Hemoglobin 12.5 G/DL (12.0-16.0) Hematocrit 37.9 % (37.0-47.0) Mean Corpuscular Volume 89 FL (80-99) Mean Corpuscular Hemoglobin 29.4 PG (27.0-31.0) Mean Corpuscular Hemoglobin Concent 32.9 G/DL (32.0-36.0) Red Cell Distribution Width 12.9 % (11.6-14.8) Platelet Count 208 K/UL (150-450) Mean Platelet Volume 6.8 FL (6.5-10.1) Neutrophils (%) (Auto) 69.7 % (45.0-75.0) Lymphocytes (%) (Auto) 14.7 % (20.0-45.0) L Monocytes (%) (Auto) 14.8 % (1.0-10.0) H Eosinophils (%) (Auto) 0.4 % (0.0-3.0) Basophils (%) (Auto) 0.5 % (0.0-2.0) Sodium Level 135 MMOL/L (136-145) L Potassium Level 3.5 MMOL/L (3.5-5.1) Chloride Level 100 MMOL/L (98-107) Carbon Dioxide Level 27 MMOL/L (21-32) Anion Gap 8 mmol/L (5-15) Blood Urea Nitrogen 18 mg/dL (7-18) Creatinine 0.7 MG/DL (0.55-1.30) Estimat Glomerular Filtration Rate mL/min (>60) Glucose Level 103 MG/DL (74-106) Calcium Level 8.5 MG/DL (8.5-10.1) Total Bilirubin 0.6 MG/DL (0.2-1.0) Aspartate Amino Transf (AST/SGOT) 23 U/L (15-37) Alanine Aminotransferase (ALT/SGPT) 18 U/L (12-78) Alkaline Phosphatase 91 U/L (46-116) Troponin I 0.653 ng/mL (0.000-0.056) 0.840 ng/mL (0.000-0.056) Total Protein 6.5 G/DL (6.4-8.2) Albumin 2.9 G/DL (3.4-5.0) L Globulin 3.6 g/dL Albumin/Globulin Ratio 0.8 (1.0-2.7) L Thyroid Stimulating Hormone (TSH) 1.499 uiU/mL (0.358-3.740) Total Creatine Kinase 122 U/L (26-308) Height (Feet): 4 Height (Inches): 7.00 Weight (Pounds): 170 Medications Current Medications Medications (Trade) Dose Ordered Sig/Lizz Route PRN Reason Start Time Stop Time Status Last Admin Dose Admin Acetaminophen (Tylenol) 650 mg Q4H PRN ORAL T>100.5 10/30/17 13:45 11/29/17 13:44 Al Hydroxide/Mg Hydroxide (Mylanta II) 30 ml Q6H PRN ORAL dyspepsia 10/30/17 13:45 11/29/17 13:44 Amlodipine Besylate (Norvasc) 5 mg DAILY ORAL 10/31/17 09:00 11/30/17 08:59 Apixaban (Eliquis) 2.5 mg BID ORAL 10/30/17 22:15 11/29/17 22:14 10/31/17 17:56 Dextrose (Dextrose 50%) STAT PRN IV Hypoglycemia 10/30/17 13:45 11/29/17 13:44 Furosemide (Lasix) 20 mg DAILY ORAL 10/31/17 09:00 11/30/17 08:59 Lorazepam (Ativan 2mg/ml 1ml) 0.5 mg Q4H PRN IV For Anxiety 10/30/17 13:45 11/06/17 13:44 Morphine Sulfate (Morphine Sulfate) 2 mg Q4H PRN IVP Moderate Pain (Pain Scale 4-6) 10/30/17 13:45 11/06/17 13:44 10/31/17 10:59 Morphine Sulfate (Morphine Sulfate) 4 mg Q4H PRN IVP Severe Pain (Pain Scale 7-10) 10/30/17 13:45 11/06/17 13:44 10/30/17 17:25 Ondansetron HCl (Zofran) 4 mg Q6H PRN IVP Nausea & Vomiting 10/30/17 13:45 11/29/17 13:44 Polyethylene Glycol (Miralax) 17 gm HSPRN PRN ORAL Constipation 10/30/17 21:00 11/29/17 20:59 Potassium Chloride (K-Dur) 20 meq DAILY ORAL 10/31/17 09:00 11/30/17 08:59 10/31/17 09:47 Zolpidem Tartrate (Ambien) 5 mg HSPRN PRN ORAL Insomnia 10/30/17 21:00 11/06/17 20:59 Assessment/Plan Status: stable Assessment/Plan Anxiety d/o ativan prn ambien randalln Mandeep Nicholson M.D. Oct 31, 2017 20:35
--- NOTE | 2017-10-31 21:00 | Consultation ---
DATE OF CONSULTATION: 10/31/2017 ORTHOPEDIC CONSULTATION CONSULTING PHYSICIAN: Ar Mahoney M.D. CONSULT CALLED BY: Lalita Way M.D. HISTORY: The patient is a pleasant 82-year-old female, who fell on Monday sustaining injury to the right knee and also having pain in the hip. She was transferred to [facility] ER where she was noted to have a small nondisplaced right patellar fracture. Orthopedic consult has been called. PAST MEDICAL HISTORY: Atrial fibrillation. PAST SURGICAL HISTORY: Left total knee. CURRENT MEDICATIONS: Please see chart. ALLERGIES: To penicillin. SOCIAL HISTORY: She is independent with all activities. She lives in a community housing in a [facility] facility. She does not drink or smoke. REVIEW OF SYSTEMS: Negative other than the hip pain and knee pain. PHYSICAL EXAMINATION: Examination of the right knee shows exquisite tenderness to palpation. She has a 2+ effusion. She has full extension and the movement of the knee is very painful. She has some pain tenderness around the hip. No major lower extremity swelling. No skin breakdown and no erythema or signs of infection. LABORATORY AND DIAGNOSTIC DATA: Imaging studies, these are all reviewed including knee and pelvic x-rays and CTs. Pelvic and hip x-rays CTs to rule out any fracture. Knee x-ray does not show any obvious fracture, however, on knee CT there is a small far lateral nondisplaced patellar fracture noted. IMPRESSION: 1. Right hip and pelvic contusion without fracture. 2. Right knee nondisplaced small patellar fracture. DISCUSSION: At this time, I discussed with the patient my findings. At this point, she does not require surgical intervention. We will recommend a knee immobilizer for her right knee and start her on physical therapy where she can be weightbearing as tolerated. I discussed with her that she will be in a knee immobilizer for about 4 weeks at which point, we will get her out of it and allow her to start working on range of motion. She is in agreement with that. We will follow up with her as an outpatient for ongoing outpatient management and followup of serial x-rays. The patient's questions were answered. Ar Mahoney M.D. Sami Styles DR: MARY CARMEN JOB#: [id number] CC: SHANICE
[2017-11-01] VITALS: BP 123/60
[2017-11-01] MEDS: Morphine Sulfate 2mg/ml Inj IVP PRN ×3 (02:20→14:06)
--- NOTE | 2017-11-01 02:31 | Consultation ---
DATE OF CONSULTATION: 10/31/2017 ORTHOPEDIC CONSULTATION CONSULTING PHYSICIAN: Leonard Yeager M.D. HISTORY OF PRESENT ILLNESS: The patient is a pleasant 82-year-old female, who was brought into the emergency room with complaints of right hip and right knee pain. She was noted to have a fall. She was diagnosed with patella fracture. She was admitted to the telemetry for further care and recommendations. PAST MEDICAL HISTORY: cardiac disease, hip fracture, chronic anticoagulation. PAST SURGICAL HISTORY: None listed. MEDICATIONS: Reviewed from the intake chart. PHYSICAL EXAMINATION: GENERAL: The patient is alert and oriented. She is resting comfortably in bed. VITAL SIGNS: Afebrile. Stable vital signs. EXTREMITIES: Right knee examination shows pain with patellar grinding, mild effusion. Neurovascular was normal. Posterior calf is soft. DIAGNOSTIC DATA: Four views of the right knee reviewed and showed medial compartment arthrosis, no obvious fracture or dislocation, and no soft tissue abnormalities. CT scan of the right knee shows a nondisplaced inferior pole patella fracture. ASSESSMENT: Right inferior pole patella fracture. DISCUSSION: At this point, there is a nondisplaced fracture, would recommend knee immobilization with the knee straight. This should allow the fracture to heal. She will be weightbearing as tolerated as long as she has the knee immobilizer on. She can follow up as an outpatient for further care and recommendation. I discussed with her it will take about six weeks for the fracture to heal. Based on how she does with physical therapy, she may have to go to rehab for that period of time. Leonard Yeager M.D. DR: APRIL JOB#: [id number] CC: Lalita Way M.D.; Fax#: [phone] [facility] HOSPITALDaryl
[2017-11-01 04:00] VITALS: BP 110/66
[2017-11-01 08:00] VITALS: BP 119/70
[2017-11-01 08:48] LABS: BASOPHILS % (AUTO) 0.7 % (0.0-2.0); EOSINOPHILS % (AUTO) 0.9 % (0.0-3.0); HEMATOCRIT 39.2 % (37.0-47.0); HEMOGLOBIN 13.3 G/DL (12.0-16.0); LYMPHOCYTES % (AUTO) 11.9 % (20.0-45.0); MEAN CORPUSCULAR VOLUME 89 FL (80-99); MONOCYTES % (AUTO) 10.8 % (1.0-10.0); NEUTROPHILS % (AUTO) 75.7 % (45.0-75.0); PLATELET COUNT 190 K/UL (150-450); RED BLOOD COUNT 4.38 M/UL (4.20-5.40); WHITE BLOOD COUNT 8.4 K/UL (4.8-10.8)
[2017-11-01 08:53] LABS: ALANINE AMINOTRANSFERASE 19 U/L (12-78); ALBUMIN 2.6 G/DL (3.4-5.0); ALBUMIN/GLOBULIN RATIO 0.6 (1.0-2.7); ALKALINE PHOSPHATASE 97 U/L (46-116); ANION GAP 5 mmol/L (5-15); ASPARTATE AMINO TRANSFERASE 26 U/L (15-37); BILIRUBIN,TOTAL 0.7 MG/DL (0.2-1.0); BLOOD UREA NITROGEN 10 mg/dL (7-18); CALCIUM 8.5 MG/DL (8.5-10.1); CARBON DIOXIDE 29 MMOL/L (21-32); CHLORIDE 99 MMOL/L (98-107); CREATININE 0.7 MG/DL (0.55-1.30); PHOSPHORUS 2.6 MG/DL (2.5-4.9); POTASSIUM 3.9 MMOL/L (3.5-5.1); SODIUM 133 MMOL/L (136-145)
[2017-11-01] MEDS: Eliquis 2.5mg tablet ORAL SCH ×2 (08:56→18:08)
[2017-11-01 12:00] VITALS: BP 122/97
--- NOTE | 2017-11-01 14:05 | Diagnostic Imaging Report ---
Indication: Shortness of breath Technique: One view of the chest Comparison: 08/05/2015 Findings: There is thoracic scoliotic deformity again demonstrated. There is element of atelectasis and possibly some consolidation and pleural fluid at the right lung base. Is equivocally minimal interstitial congestion, not evident previously if real. The heart is borderline enlarged. Impression: Right basilar atelectasis and possibly consolidation and pleural fluid Equivocal minimal interstitial congestion
--- NOTE | 2017-11-01 14:23 | Pulmonology Progress Note ---
Assessment/Plan Problems: (1) Patellar fracture (2) Near syncope (3) Atrial fibrillation (4) Chronic anticoagulation (5) CAD (coronary artery disease) (6) Aortic stenosis Assessment/Plan did well with pt/ot symptomatic treatment ortho recommended, nonsurgical treatment analgesics keep in teli until cardio clears. med/surg Subjective ROS Limited/Unobtainable: No Interval Events: doing better Allergies: Coded Allergies: PENICILLIN (Verified Allergy, Unknown, 08/05/15) Objective Last 24 Hour Vital Signs Date Time Temp Pulse Resp B/P (MAP) Pulse Ox O2 Delivery O2 Flow Rate FiO2 11/01/17 12:00 85 11/01/17 08:49 88 119/70 11/01/17 08:00 97.9 88 18 119/70 95 Room Air 97.9 11/01/17 08:00 86 11/01/17 04:00 98.8 89 20 110/66 99 Nasal Cannula 2.0 98.8 11/01/17 04:00 86 11/01/17 00:00 97.9 89 18 123/60 95 Nasal Cannula 2.0 97.9 11/01/17 00:00 93 10/31/17 20:00 100 10/31/17 20:00 98.4 84 18 124/70 95 98.4 10/31/17 16:00 97.5 88 18 116/62 94 Room Air 97.5 10/31/17 16:00 77 Intake and Output 10/31/17 11/01/17 19:00 07:00 Intake Total 360 ml Output Total 250 ml Balance 110 ml Intake Oral 360 ml Output Urine Total 250 ml # Voids 1 2 Objective General Appearance: WD/WN Lines, tubes and drains: peripheral HEENT: normocephalic, atraumatic Neck: non-tender, normal alignment Respiratory/Chest: chest wall non-tender, lungs clear, normal breath sounds Breasts: no masses Cardiovascular/Chest: normal peripheral pulses, normal rate, no JVD Abdomen: normal bowel sounds, non tender Genitourinary/Rectal: normal genital exam Extremities: normal range of motion, non-tender Skin Exam: normal pigmentation, warm/dry Laboratory Tests 10/31/17 18:45: Total Creatine Kinase 122, Troponin I 0.840H 11/01/17 06:54: Troponin I 0.593H, White Blood Count 8.4, Red Blood Count 4.38, Hemoglobin 13.3 , Hematocrit 39.2, Mean Corpuscular Volume 89, Mean Corpuscular Hemoglobin 30.3 , Mean Corpuscular Hemoglobin Concent 33.9, Red Cell Distribution Width 13.0, Platelet Count 190, Mean Platelet Volume 6.3L, Neutrophils (%) (Auto) 75.7H, Lymphocytes (%) (Auto) 11.9L, Monocytes (%) (Auto) 10.8H, Eosinophils (%) (Auto ) 0.9, Basophils (%) (Auto) 0.7, Erythrocyte Sedimentation Rate 45H, Sodium Level 133L, Potassium Level 3.9, Chloride Level 99, Carbon Dioxide Level 29, Anion Gap 5, Blood Urea Nitrogen 10, Creatinine 0.7, Estimat Glomerular Filtration Rate , Glucose Level 91, Calcium Level 8.5, Phosphorus Level 2.6, Magnesium Level 2.0, Total Bilirubin 0.7, Aspartate Amino Transf (AST/SGOT) 26, Alanine Aminotransferase (ALT/SGPT) 19, Alkaline Phosphatase 97, Total Protein 6.8, Albumin 2.6L, Globulin 4.2, Albumin/Globulin Ratio 0.6L Current Medications Medications (Trade) Dose Ordered Sig/Lizz Route PRN Reason Start Time Stop Time Status Last Admin Dose Admin Acetaminophen (Tylenol) 650 mg Q4H PRN ORAL T>100.5 10/30/17 13:45 11/29/17 13:44 Al Hydroxide/Mg Hydroxide (Mylanta II) 30 ml Q6H PRN ORAL dyspepsia 10/30/17 13:45 11/29/17 13:44 Amlodipine Besylate (Norvasc) 5 mg DAILY ORAL 10/31/17 09:00 11/30/17 08:59 11/01/17 08:49 Apixaban (Eliquis) 2.5 mg BID ORAL 10/30/17 22:15 11/29/17 22:14 11/01/17 08:56 Dextrose (Dextrose 50%) STAT PRN IV Hypoglycemia 10/30/17 13:45 11/29/17 13:44 Furosemide (Lasix) 20 mg DAILY ORAL 10/31/17 09:00 11/30/17 08:59 Lorazepam (Ativan 2mg/ml 1ml) 0.5 mg Q4H PRN IV For Anxiety 10/30/17 13:45 11/06/17 13:44 Morphine Sulfate (Morphine Sulfate) 2 mg Q4H PRN IVP Moderate Pain (Pain Scale 4-6) 10/30/17 13:45 11/06/17 13:44 11/01/17 14:06 Morphine Sulfate (Morphine Sulfate) 4 mg Q4H PRN IVP Severe Pain (Pain Scale 7-10) 10/30/17 13:45 11/06/17 13:44 10/30/17 17:25 Ondansetron HCl (Zofran) 4 mg Q6H PRN IVP Nausea & Vomiting 10/30/17 13:45 11/29/17 13:44 Polyethylene Glycol (Miralax) 17 gm HSPRN PRN ORAL Constipation 10/30/17 21:00 11/29/17 20:59 Potassium Chloride (K-Dur) 20 meq DAILY ORAL 10/31/17 09:00 11/30/17 08:59 11/01/17 08:55 Zolpidem Tartrate (Ambien) 5 mg HSPRN PRN ORAL Insomnia 10/30/17 21:00 11/06/17 20:[address] MD Nov 01, 2017 14:23
[2017-11-01] MEDS ORDERED: FUROSEMIDE20 M1 ORAL (14:24)
[2017-11-01 16:00] VITALS: BP 127/73
--- NOTE | 2017-11-01 16:37 | Cardiology Report ---
APPROVED REPORT EKG Measurement Heart [id number] Sinus rhythm with premature supraventricular complexes Right atrial enlargement Left ventricular hypertrophy with repolarization abnormality Abnormal ECG
--- NOTE | 2017-11-01 17:45 | Cardiology Progress Note ---
Assessment/Plan Assessment/Plan 1. Nonsyncopal fall. 2. Patellar fracture, nondisplaced. 3. Aortic stenosis. 4. Questionable history of paroxysmal episodes of atrial fibrillation for which she is on anticoagulation with Eliquis. 5. 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 6. Edema. 7. minor trop abn no surgery planned hrere epic data reviewed appear her usual physiotherapy assistant recorded PG of 98 mmhg across the aortic valve with hyperdynamic lv ef70-75% her echo yest more images taken as i believe the av gradient may be in excess of 133 mmhg!!(and at thsi point i doot believe flow contamination by any MR , she also has mod MS and new SWMA not noted on prior echo report ef not as high as prior but still ok will review new images trop mild abn persistent min up and and down bot nto peak or tara to suggest typical picture of acs cpk normal, possible related to sig still denies havign had any cp ekg shows some new st changes as well which see new compared to 2017 ekg message left for dr melendez to discuss plans in light of sig and abn trop keep on diurtics orthosttic vital bnp trop in am Subjective Cardiovascular: Denies: chest pain, lightheadedness, palpitations Respiratory: Denies: shortness of breath Gastrointestinal/Abdominal: Denies: abdominal pain Genitourinary: Denies: burning Objective Last 24 Hour Vital Signs Date Time Temp Pulse Resp B/P (MAP) Pulse Ox O2 Delivery O2 Flow Rate FiO2 11/01/17 12:00 97.0 97 20 122/97 Room Air 97.0 11/01/17 12:00 85 11/01/17 08:49 88 119/70 11/01/17 08:00 97.9 88 18 119/70 95 Room Air 97.9 11/01/17 08:00 86 11/01/17 04:00 98.8 89 20 110/66 99 Nasal Cannula 2.0 98.8 11/01/17 04:00 86 11/01/17 00:00 97.9 89 18 123/60 95 Nasal Cannula 2.0 97.9 11/01/17 00:00 93 10/31/17 20:00 100 10/31/17 20:00 98.4 84 18 124/70 95 98.4 General Appearance: no apparent distress, alert Cardiovascular: normal rate, systolic murmur Respiratory/Chest: normal breath sounds, crackles/rales - min righ base Abdomen: normal bowel sounds, non tender, soft Extremities: no swelling Intake and Output 10/31/17 11/01/17 19:00 07:00 Intake Total 360 ml Output Total 250 ml Balance 110 ml Intake Oral 360 ml Output Urine Total 250 ml # Voids 1 2 Laboratory Tests Test 10/31/17 18:45 11/01/17 06:54 Total Creatine Kinase 122 U/L (26-308) Troponin I 0.840 ng/mL (0.000-0.056) 0.593 ng/mL (0.000-0.056) White Blood Count 8.4 K/UL (4.8-10.8) Red Blood Count 4.38 M/UL (4.20-5.40) Hemoglobin 13.3 G/DL (12.0-16.0) Hematocrit 39.2 % (37.0-47.0) Mean Corpuscular Volume 89 FL (80-99) Mean Corpuscular Hemoglobin 30.3 PG (27.0-31.0) Mean Corpuscular Hemoglobin Concent 33.9 G/DL (32.0-36.0) Red Cell Distribution Width 13.0 % (11.6-14.8) Platelet Count 190 K/UL (150-450) Mean Platelet Volume 6.3 FL (6.5-10.1) L Neutrophils (%) (Auto) 75.7 % (45.0-75.0) H Lymphocytes (%) (Auto) 11.9 % (20.0-45.0) L Monocytes (%) (Auto) 10.8 % (1.0-10.0) H Eosinophils (%) (Auto) 0.9 % (0.0-3.0) Basophils (%) (Auto) 0.7 % (0.0-2.0) Erythrocyte Sedimentation Rate 45 MM/HR (0-42) H Sodium Level 133 MMOL/L (136-145) L Potassium Level 3.9 MMOL/L (3.5-5.1) Chloride Level 99 MMOL/L (98-107) Carbon Dioxide Level 29 MMOL/L (21-32) Anion Gap 5 mmol/L (5-15) Blood Urea Nitrogen 10 mg/dL (7-18) Creatinine 0.7 MG/DL (0.55-1.30) Estimat Glomerular Filtration Rate mL/min (>60) Glucose Level 91 MG/DL (74-106) Calcium Level 8.5 MG/DL (8.5-10.1) Phosphorus Level 2.6 MG/DL (2.5-4.9) Magnesium Level 2.0 MG/DL (1.8-2.4) Total Bilirubin 0.7 MG/DL (0.2-1.0) Aspartate Amino Transf (AST/SGOT) 26 U/L (15-37) Alanine Aminotransferase (ALT/SGPT) 19 U/L (12-78) Alkaline Phosphatase 97 U/L (46-116) Total Protein 6.8 G/DL (6.4-8.2) Albumin 2.6 G/DL (3.4-5.0) L Globulin 4.2 g/dL Albumin/Globulin Ratio 0.6 (1.0-2.7) L SINA CLEMENTE Nov 01, 2017 17:45
--- NOTE | 2017-11-01 20:00 | Cardiology Report ---
APPROVED REPORT EXAM: Two-dimensional and M-mode echocardiogram with Doppler and color Doppler. INDICATION Atrial flutter M-Mode DIMENSIONS IVSd1.3 (0.7-1.1cm)Left Atrium (MM)5.0 (1.6-4.0cm) LVDd3.0 (3.5-5.6cm)Aortic Root3.2 (2.0-3.7cm) PWd1.4 (0.7-1.1cm)Aortic Cusp Exc.1.2 (1.5-2.0cm) LVDs1.4 (2.5-4.0cm) PWs2.0 cm Technically difficult and limited study due to poor acoustical windows. Study quality precludes accurate assessment of regional wall motion. Normal left ventricular chamber size. Normal wall motion except proximal to mid posterior wall and apical septum appear somewhat dyskinetic Left ventricular ejection fraction estimated to be 55-60 % by visual estimation . Mild left ventricular hypertrophy. Possible large posterior pleural effusion. Mild left atrial enlargement. Right cardiac chamber sizes are within normal limits. Aortic valve calcification with decreased cusp excursion c/w significant aortic stenosis. Heavily thickened mitral valve leaflets poorly visualed leaflet. Heavy mitral annulus and aortic root calcification. Pulmonic valve not well visualized. Normal tricuspid valve structure. IVC is normal in size with physiological collapse. A color flow and spectral Doppler study was performed and revealed: Mild aortic insufficiency. Peak aortic valve gradient of 132 mm Hg and a mean of 75 mmHg. Aortic valve area 0.8 cm2 calculated by continuity equation. The profile is suggestive of static obstruction c/w severe Mild to moderate mitral regurgitation. Peak mitral valve diastolic gradient of 29 mmHg and a mean gradient of 13 mmHg. suggestive of severe mitral stenosis. Mitral diastolic velocities suggest mild left ventricular diastolic dysfunction (Grade I). Mild to moderate tricuspid regurgitation. Tricuspid systolic velocities suggests peak right ventricular systolic pressure of 64 mmHg, consistent with severe pulmonary hypertension. Trace pulmonic regurgitation present.
--- NOTE | 2017-11-01 22:48 | General Progress Note ---
Assessment/Plan Status: stable Assessment/Plan Anxiety d/o ativan prn ambien prn Subjective Date patient seen: Oct 31, 2017 Neurologic/Psychiatric: Reports: anxiety, depressed, emotional problems Allergies: Coded Allergies: PENICILLIN (Verified Allergy, Unknown, 08/05/15) Objective Last 24 Hour Vital Signs Date Time Temp Pulse Resp B/P (MAP) Pulse Ox O2 Delivery O2 Flow Rate FiO2 11/01/17 16:00 98.0 92 20 127/73 99 Room Air 98.0 11/01/17 12:00 97.0 97 20 122/97 Room Air 97.0 11/01/17 12:00 85 11/01/17 08:49 88 119/70 11/01/17 08:00 97.9 88 18 119/70 95 Room Air 97.9 11/01/17 08:00 86 11/01/17 04:00 98.8 89 20 110/66 99 Nasal Cannula 2.0 98.8 11/01/17 04:00 86 11/01/17 00:00 97.9 89 18 123/60 95 Nasal Cannula 2.0 97.9 11/01/17 00:00 93 Intake and Output 10/31/17 11/01/17 19:00 07:00 Intake Total 360 ml Output Total 250 ml Balance 110 ml Intake Oral 360 ml Output Urine Total 250 ml # Voids 1 2 Laboratory Tests 11/01/17 06:54: White Blood Count 8.4, Red Blood Count 4.38, Hemoglobin 13.3, Hematocrit 39.2, Mean Corpuscular Volume 89, Mean Corpuscular Hemoglobin 30.3, Mean Corpuscular Hemoglobin Concent 33.9, Red Cell Distribution Width 13.0, Platelet Count 190, Mean Platelet Volume 6.3L, Neutrophils (%) (Auto) 75.7H, Lymphocytes (%) (Auto) 11.9L, Monocytes (%) (Auto) 10.8H, Eosinophils (%) (Auto) 0.9, Basophils (%) ( Auto) 0.7, Erythrocyte Sedimentation Rate 45H, Sodium Level 133L, Potassium Level 3.9, Chloride Level 99, Carbon Dioxide Level 29, Anion Gap 5, Blood Urea Nitrogen 10, Creatinine 0.7, Estimat Glomerular Filtration Rate , Glucose Level 91, Calcium Level 8.5, Phosphorus Level 2.6, Magnesium Level 2.0, Total Bilirubin 0.7, Aspartate Amino Transf (AST/SGOT) 26, Alanine Aminotransferase ( ALT/SGPT) 19, Alkaline Phosphatase 97, Troponin I 0.593H, Total Protein 6.8, Albumin 2.6L, Globulin 4.2, Albumin/Globulin Ratio 0.6L Height (Feet): 4 Height (Inches): 7.00 Weight (Pounds): 170 Mandeep Nicholson M.D. Nov 01, 2017 22:48
--- NOTE | 2017-11-02 00:46 | Progress Note ---
DATE: 11/01/2017 SUBJECTIVE: No issues overnight. The patient is resting comfortably at this time in bed. OBJECTIVE: Pain with palpation along the patellar tendon. Mild crepitus. Neurovascular is normal. ASSESSMENT: Right nondisplaced patellar fracture. DISCUSSION: At this point, she is to continue with the knee immobilizer. She will be weightbearing as tolerated. Discussed, will take 6 to 8 weeks for this fracture to heal. She can follow up as an outpatient in six weeks to get repeat imaging studies and to remove the splint, to begin outpatient physical therapy. In the meantime, will need physical therapy evaluation to see if she can go home or rehabilitation center. Leonard Yeager M.D. DR: LINDSAY JOB#: [id number] CC: SHANICE
--- NOTE | 2017-11-02 12:51 | Discharge Summary ---
Discharge Summary Hospital Course Date of Admission Oct 30, 2017 at 12:09 Date of Discharge Nov 01, 2017 at 19:20 Admitting Diagnosis right hip fx HPI Ifeoma Forbes is a 82 year old female who was admitted on Oct 30, 2017 at 12: 09 for Right Hip Fracture Hospital Course [id number] Discharge Discharge Disposition Patient was discharged to Home with Home Health(06) Noris Mendez NP Nov 02, 2017 12:51
--- NOTE | 2017-11-03 05:16 | Discharge Summary 2 SIG ---
DATE OF ADMISSION: 10/30/2017 DATE OF DISCHARGE: 11/01/2017 CONSULTANTS: 1. Leonard Yeager M.D. 2. Mandeep Nicholson M.D. 3. Henry Shafer M.D. 4. Ar Mahoney M.D. BRIEF HOSPITAL COURSE: The patient is an 82-year-old female with history of atrial fibrillation on Eliquis, presented to ER via paramedics after increased right hip pain and knee pain after a fall. She has medical history significant for coronary artery disease and aortic stenosis. The patient has been on Eliquis. On evaluation at ED, there was no leukocytosis noted. CAT scan of the right hip showed no definite fracture. X-ray of the right heel with degenerative changes. CT of the knee showed nondisplaced fracture on the far lateral aspect of the patella. She had elevated troponin of 0.653. She was admitted to telemetry. Dr. Shafer was consulted. The patient had a non-syncopal fall. Echocardiogram done showed peak aortic valve gradient of 132 with aortic valve area of 0.8 Sq.cm suggestive of severe aortic stenosis. Ejection fraction was 55% to 60%. She was continued on metoprolol and hydrochlorothiazide. Troponins were monitored and was mildly abnormal, but no peak and tara to suggest typical picture of ACS. Elevated troponin possibly related to significant aortic stenosis. The patient did not present with any chest pain. She was evaluated by risk control specialist. She was advised nonsurgical management and the patient would need a knee immobilizer and physical therapy with weightbearing as tolerated. Explained may take 6 to 8 weeks for fracture to heal. She was advised to followup in 6 weeks for repeat imaging and to remove the splint. The patient will need outpatient physical therapy. She underwent psychiatric evaluation. She was diagnosed with anxiety disorder and was given Ativan as needed. She was eventually cleared for discharge home to follow up as outpatient. FINAL DIAGNOSES: 1. Acute nondisplaced right patellar fracture. 2. Anxiety disorder. 3. Severe aortic stenosis. 4. Atrial fibrillation, on anticoagulation. 5. Coronary artery disease. 6. Near syncope. DISCHARGE INSTRUCTIONS: Continue with weightbearing as tolerated. Follow up in 6 weeks for repeat x-ray and possible removal of splint and to begin outpatient physical therapy. Follow up with Dr. Bain for evaluation of significant aortic stenosis and abnormal troponin. DISPOSITION: The patient was discharged home. DISCHARGE MEDICATIONS: Refer to medication list. Lalita Way M.D. I have been assigned to dictate discharge summary on this account and I was not involved in the patient's management. Noris Mendez N.P. DR: ROMERO JOB#: [id number] CC: SHANICE
== END 2017-11-01 19:20 | disposition home or self-care (01) | DRG 563 ==
LOC: EDBD 10:51 → EDSEX 10:51 → EMR 11:25 → 2E 12:09 → EDBEDREQ 16:38 → 2E 10-31 10:53
DX: S82.001A Unspecified fracture of right patella, initial encounter for closed fracture (principal); D68.9 Coagulation defect, unspecified; I48.0 Paroxysmal atrial fibrillation; I35.0 Nonrheumatic aortic (valve) stenosis; I10 Essential (primary) hypertension; I25.10 Atherosclerotic heart disease of native coronary artery without angina pectoris; R60.9 Edema, unspecified; F41.9 Anxiety disorder, unspecified; S70.01XA Contusion of right hip, initial encounter; Z88.0 Allergy status to penicillin; Z79.01 Long term (current) use of anticoagulants; W19.XXXA Unspecified fall, initial encounter; Y92.019 Unspecified place in single-family (private) house as the place of occurrence of the external cause
CPT/HCPCS: 36415; 71045; 80053; 82550; 83735; 84100; 84443; 84484; 85025; 85610; 85651; 85730; 86850; 86900; 86901; 93005; 93306; 99285; J2405; J8499